=== PATIENT | female | born 1975 | race Caucasian/White ===

== ENCOUNTER 2018-07-08 17:09 | Inpatient (IN) | payer MEDICAID ==
[2018-07-08] MEDS ORDERED: BUTORPHANOL 2 MG INJ IV (17:30)
[2018-07-08] MEDS ORDERED: METHYLERGONOVINE 0.2 MG INJ IM (17:30)
[2018-07-08] MEDS ORDERED: OXYTOCIN 30 UNITS/LR 500 ML IV ×2 (17:30)
[2018-07-08] MEDS ORDERED: LIDOCAINE 1% (MPF) 30 ML INJ INJ (17:30)
[2018-07-08] MEDS ORDERED: CARBOPROST 250 MCG INJ IM (17:30)
[2018-07-08] MEDS ORDERED: MISOPROSTOL 200 MCG TAB PR (17:30)
[2018-07-08 17:49] LABS: ADD MAN DIFF? NO
[2018-07-08 17:53] LABS: WHITE BLOOD COUNT 5.7 10^3/ul (4.8-10.8)
[2018-07-08 17:53] LABS: BASOPHILS % 0.2 % (0.0-2.0); EOSINOPHILS % 0.7 % (0.0-7.0); HEMOGLOBIN 11.9 g/dl (12.0-16.0); IMMATURE GRANS #M 0.01 10^3/ul; IMMATURE GRANS % (M) 0.2 %; LYMPHOCYTES # 2.1 10^3/ul (0.8-2.9); LYMPHOCYTES % 37.3 % (15.0-51.0); MEAN CORPUSCULAR HEMOGLOBIN 34.4 pg (29.0-33.0); MEAN CORPUSCULAR VOLUME 98.3 fl (82.0-101.0); MEAN PLATELET VOLUME 11.1 fl (7.4-10.4); MONOCYTE # 0.4 10^3/ul (0.3-0.9); MONOCYTES % 7.7 % (0.0-11.0); NEUTROPHIL # 3.1 10^3/ul (1.6-7.5); NEUTROPHILS % 53.9 % (39.0-77.0); PLATELET COUNT 177 10^3/UL (140-415); RED BLOOD COUNT 3.46 10^6/ul (4.20-5.40); RED CELL DISTRIBUTION WIDTH 12.2 % (11.5-14.5)
[2018-07-08 17:57] LABS: ADD UMIC YES; UR ASCORBIC ACID NEGATIVE (NEGATIVE); UR BACTERIA MANY /HPF (NONE SEEN); UR BILIRUBIN (Dip) NEGATIVE (NEGATIVE); UR BLOOD (Dip) NEGATIVE (NEGATIVE); UR CLARITY CLOUDY (CLEAR); UR COLOR YELLOW (YELLOW); UR GLUCOSE (Dip) NEGATIVE (NEGATIVE); UR KETONES (Dip) NEGATIVE (NEGATIVE); UR LEUKOCYTE ESTERASE (Dip) TRACE Leu/ul (NEGATIVE); UR MUCUS FEW /HPF (NONE SEEN); UR NITRITE (Dip) NEGATIVE (NEGATIVE); UR RBC 7 /HPF (0-5); UR SPECIFIC GRAVITY (Dip) 1.004 (1.003-1.030); UR SQUAMOUS EPITHELIAL CELL MANY /HPF (FEW); UR TOTAL PROTEIN (Dip) NEGATIVE (NEGATIVE); UR UROBILINOGEN (Dip) NEGATIVE (NEGATIVE); UR WBC 4 /HPF (0-5)
[2018-07-08] MEDS: LACTATED RINGER'S 1,000 ML IV* ×2 (18:10→23:38)
[2018-07-08 18:13] LABS: ALANINE AMINOTRANSFERASE 31 IU/L (13-69); ALBUMIN 3.4 g/dl (3.3-4.9); ALBUMIN/GLOBULIN RATIO 1.25; ALKALINE PHOSPHATASE 96 IU/L (42-121); ANION GAP 9 (8-16); ASPARTATE AMINO TRANSFERASE 27 IU/L (15-46); BILIRUBIN,INDIRECT 0.2 mg/dl (0-1.1); BILIRUBIN,TOTAL 0.2 mg/dl (0.2-1.3); BLOOD UREA NITROGEN 7 mg/dl (7-20); CALCIUM 8.8 mg/dl (8.4-10.2); CARBON DIOXIDE 21 mmol/L (21-31); CHLORIDE 110 mmol/L (97-110); CREATININE 0.52 mg/dl (0.44-1.00); GLUCOSE 76 mg/dl (70-220); INR 0.83; PARTIAL THROMBOPLASTIN TIME 28.1 Sec (25.0-35.0); POTASSIUM 3.8 mmol/L (3.5-5.1); PROTIME 11.5 Sec (11.9-14.9); PT RATIO 0.9; SODIUM 136 mmol/L (135-144); TOTAL PROTEIN 6.1 g/dl (6.1-8.1)
[2018-07-08 18:43] LABS: HEPATITIS B SURFACE ANTIGEN NEGATIVE (NEGATIVE)
[2018-07-08] MEDS ORDERED: MISOPROSTOL 100 MCG TAB PO (20:00)
[2018-07-08] MEDS ORDERED: AMPICILLIN 2 GM/NS (PMX) 100 ML (20:21)
[2018-07-08] MEDS: MISOPROSTOL 25 MCG CAPSULE PO ×2 (20:26→22:30)
[2018-07-08] MEDS: AMPICILLIN 2 GM/NS (PMX) 100 ML IV (20:29)
[2018-07-09] MEDS: AMPICILLIN 1 GM/NS (PMX) 50 ML IV ×4 (00:17→12:30)
[2018-07-09] MEDS: MISOPROSTOL 25 MCG CAPSULE PO ×4 (02:30→14:30)
[2018-07-09] MEDS ORDERED: FENTAnyl 2MCG/ML-ROPIV 0.2% 100 ML (03:59)
[2018-07-09] MEDS ORDERED: NALOXONE (0.4 MG/ML) INJ IV ×2 (04:30→13:30)
[2018-07-09] MEDS ORDERED: FENTAnyl 2MCG/ML-ROPIV 0.2% 100 ML BAG EPI (04:30)
[2018-07-09] MEDS: DEXTROSE 5%-LR 1,000 ML IV ×2 (04:53→12:27)
[2018-07-09] MEDS: LACTATED RINGER'S 1,000 ML IV* (05:29)
[2018-07-09] MEDS ORDERED: OXYTOCIN 30 UNITS/LR 500 ML IV ×3 (07:30→12:38)
[2018-07-09] MEDS ORDERED: ONDANSETRON 4 MG INJ (09:40)
[2018-07-09] MEDS: ONDANSETRON 4 MG INJ IV ×2 (09:46→19:54)
[2018-07-09] MEDS ORDERED: TERBUTALINE 0 ML (11:34)
[2018-07-09] MEDS ORDERED: METOCLOPRAMIDE 10 MG INJ (11:46)
[2018-07-09] MEDS ORDERED: morphine SULFATE/PF (10 MG/10 ML) INJ (11:51)
[2018-07-09] MEDS ORDERED: LIDOCAINE 1.5%/EPI MPF (SDV) 30 ML VIAL (11:54)
[2018-07-09 12:24] LABS: AADO2 Cord Arterial 29.6 mmHg; Arterial Cord Blood pCO2 90.3 mmHG (25-50); CBA Base Excess -13.4 mmol/L; CBA COHb 0.3 %; MODE ROOM AIR; MetHgb Cord Arterial 1.9 %; Site CORD
[2018-07-09 12:26] LABS: CBV COHb 0.3 %; CBV Total Hemglobin 17.3 g/dl; MODE ROOM AIR; MetHgb Cord Venous 1.8 %; Site CORD
[2018-07-09] MEDS ORDERED: METHYLERGONOVINE 0.2 MG TAB PO (12:30)
[2018-07-09] MEDS: OXYCODONE/ACETAMINOPHEN (5/325) TAB PO ×2 (12:30→20:30)
[2018-07-09] MEDS ORDERED: METHYLERGONOVINE 0.2 MG INJ IM (12:30)
[2018-07-09] MEDS ORDERED: MISOPROSTOL 200 MCG TAB PR (12:30)
[2018-07-09] MEDS ORDERED: CARBOPROST 250 MCG INJ IM (12:30)
[2018-07-09] MEDS ORDERED: KETOROLAC 30 MG INJ (12:39)
[2018-07-09] MEDS ORDERED: morphine 2 MG INJ IV ×3 (13:30)
[2018-07-09] MEDS ORDERED: ONDANSETRON 4 MG INJ IV (13:30)
[2018-07-09] MEDS ORDERED: morphine (1 MG/ML) 10ML SYRINGE IV ×3 (13:30)
[2018-07-09] MEDS ORDERED: DIPHENHYDRAMINE 50 MG INJ IV ×2 (13:30)
[2018-07-09] MEDS: OXYTOCIN 30 UNITS/LR 500 ML IV (13:35)
[2018-07-09] MEDS ORDERED: IBUPROFEN 800 MG TAB PO (14:00)
[2018-07-09] MEDS: PIPER-TAZO 3.375 GM IV (PMX) 100 ML IVPB ×2 (14:09→21:43)
[2018-07-09] MEDS: LABETALOL 200 MG TAB PO (15:40)
[2018-07-09] MEDS: LACTATED RINGER'S 1,000 ML IV (18:53)
[2018-07-09] MEDS: MAGNESIUM SULFATE 4 GM/100 ML 100 ML IV (18:58)
[2018-07-09] MEDS ORDERED: CA GLUCONATE (GM) 10% 10ML INJ IV (19:00)
[2018-07-09] MEDS: MAGNESIUM SULFATE 20 GM/500 ML 500 ML IV (19:37)
[2018-07-09] MEDS: LABETALOL 100 MG TAB PO (20:31)
[2018-07-09] MEDS: SENNA/DOCUSATE NA (8.6MG/50MG) TAB PO (21:00)
[2018-07-09 21:45] LABS: RAPID PLASMA REAGIN NONREACTIVE (NR)
[2018-07-10 01:41] LABS: MAGNESIUM 4.9 mg/dl (1.7-2.5)
[2018-07-10] MEDS: OXYCODONE/ACETAMINOPHEN (5/325) TAB PO ×3 (04:30→20:30)
[2018-07-10] MEDS: MAGNESIUM SULFATE 20 GM/500 ML 500 ML IV (04:45)
[2018-07-10] MEDS: PIPER-TAZO 3.375 GM IV (PMX) 100 ML IVPB ×3 (05:32→22:35)
[2018-07-10] MEDS: KETOROLAC 30 MG INJ IV (08:22)
[2018-07-10] MEDS: SENNA/DOCUSATE NA (8.6MG/50MG) TAB PO ×2 (08:23→21:21)
[2018-07-10 09:25] LABS: ADD MAN DIFF? NO
[2018-07-10] MEDS ORDERED: GLUCAGON 1 MG INJ IM (09:30)
[2018-07-10] MEDS ORDERED: GLUCOSE GEL 15 GRAM TUBE PO ×2 (09:30)
[2018-07-10] MEDS ORDERED: DEXTROSE 50% 50 ML SYRINGE IV ×2 (09:30)
[2018-07-10] MEDS ORDERED: GLUCOSE GEL 15 GRAM TUBE BUCCAL (09:30)
[2018-07-10] MEDS: metFORMIN 500 MG TAB PO ×2 (09:40→18:13)
[2018-07-10 09:41] LABS: BASOPHILS % 0.2 % (0.0-2.0); HEMOGLOBIN 10.3 g/dl (12.0-16.0); IMMATURE GRANS #M 0.03 10^3/ul; IMMATURE GRANS % (M) 0.3 %; LYMPHOCYTES # 1.2 10^3/ul (0.8-2.9); LYMPHOCYTES % 10.3 % (15.0-51.0); MEAN CORPUSCULAR HEMOGLOBIN 34.9 pg (29.0-33.0); MEAN CORPUSCULAR HGB CONC 35.5 g/dl (32.0-37.0); MEAN CORPUSCULAR VOLUME 98.3 fl (82.0-101.0); MONOCYTE # 0.5 10^3/ul (0.3-0.9); MONOCYTES % 4.5 % (0.0-11.0); NEUTROPHIL # 10.1 10^3/ul (1.6-7.5); NEUTROPHILS % 84.7 % (39.0-77.0); PLATELET COUNT 149 10^3/UL (140-415); RED BLOOD COUNT 2.95 10^6/ul (4.20-5.40); RED CELL DISTRIBUTION WIDTH 12.2 % (11.5-14.5)
[2018-07-10 09:41] LABS: WHITE BLOOD COUNT 11.9 10^3/ul (4.8-10.8)
[2018-07-10] MEDS: LANOLIN 7 GM TUBE TOP (09:41)
[2018-07-10] MEDS: LABETALOL 100 MG TAB PO ×2 (09:41→21:21)
[2018-07-10] MEDS: LACTATED RINGER'S 1,000 ML IV (09:44)
[2018-07-10] MEDS: OXYTOCIN 30 UNITS/LR 500 ML IV (09:46)
[2018-07-10 10:02] LABS: MAGNESIUM 6.2 mg/dl (1.7-2.5)
[2018-07-10] MEDS ORDERED: MAGNESIUM SULFATE 20 GM/500 ML 500 ML IV (11:35)
[2018-07-10] MEDS ORDERED: HYDROCODONE/APAP (5/325) TAB GTB (12:00)
[2018-07-10] MEDS: HYDROCODONE/APAP (5/325) TAB PO ×3 (13:05→22:00)
[2018-07-10] MEDS: NACL 0.9% 3 ML SYG IV (14:41)
[2018-07-10 16:39] LABS: HEMOGLOBIN A1C 7.1 % (0-5.9)
[2018-07-10] MEDS: INSULIN ASPART [NOVOLOG] 3 ML PEN SC ×2 (17:59→21:00)
[2018-07-10] MEDS: IBUPROFEN 600 MG TAB PO (18:13)
[2018-07-10] MEDS: IBUPROFEN 800 MG TAB PO (21:21)
[2018-07-11] MEDS: OXYCODONE/ACETAMINOPHEN (5/325) TAB PO ×6 (04:28→20:52)
[2018-07-11] MEDS: PIPER-TAZO 3.375 GM IV (PMX) 100 ML IVPB ×3 (05:32→22:00)
[2018-07-11] MEDS: IBUPROFEN 800 MG TAB PO ×3 (05:32→22:10)
[2018-07-11] MEDS: HYDROCODONE/APAP (5/325) TAB PO ×3 (06:00→22:00)
[2018-07-11] MEDS: INSULIN ASPART [NOVOLOG] 3 ML PEN SC ×4 (08:05→21:00)
[2018-07-11] MEDS: metFORMIN 500 MG TAB PO ×2 (08:34→18:15)
[2018-07-11] MEDS: LACTATED RINGER'S 1,000 ML IV ×3 (08:37→23:59)
[2018-07-11] MEDS: LABETALOL 100 MG TAB PO ×2 (09:00→19:41)
[2018-07-11] MEDS: SENNA/DOCUSATE NA (8.6MG/50MG) TAB PO ×2 (09:21→20:51)
[2018-07-11] MEDS: LABETALOL 200 MG TAB PO (19:39)
[2018-07-12] MEDS: OXYCODONE/ACETAMINOPHEN (5/325) TAB PO ×3 (04:30→20:40)
[2018-07-12] MEDS: HYDROCODONE/APAP (5/325) TAB PO ×3 (06:00→21:56)
[2018-07-12] MEDS: IBUPROFEN 800 MG TAB PO ×3 (06:27→22:00)
[2018-07-12] MEDS: MAGNESIUM HYDROXIDE 30ML CUP PO (06:29)
[2018-07-12] MEDS: INSULIN ASPART [NOVOLOG] 3 ML PEN SC ×4 (08:05→21:00)
[2018-07-12] MEDS: metFORMIN 500 MG TAB PO ×2 (08:30→18:01)
[2018-07-12] MEDS: SENNA/DOCUSATE NA (8.6MG/50MG) TAB PO ×2 (08:39→20:40)
[2018-07-12] MEDS: LABETALOL 100 MG TAB PO ×2 (08:39→11:42)
[2018-07-12] MEDS: MEASLES,MUMPS,RUBELLA VACCINE INJ SC* (09:00)
[2018-07-12] MEDS: LACTATED RINGER'S 1,000 ML IV (13:19)
[2018-07-12] MEDS: LABETALOL 200 MG TAB PO (20:41)
[2018-07-13] MEDS: LACTATED RINGER'S 1,000 ML IV (02:39)
[2018-07-13] MEDS: OXYCODONE/ACETAMINOPHEN (5/325) TAB PO ×3 (04:25→20:41)
[2018-07-13] MEDS: HYDROCODONE/APAP (5/325) TAB PO ×3 (05:56→22:00)
[2018-07-13] MEDS: IBUPROFEN 800 MG TAB PO ×3 (05:56→22:00)
[2018-07-13] MEDS: INSULIN ASPART [NOVOLOG] 3 ML PEN SC ×4 (08:05→20:49)
[2018-07-13] MEDS: LABETALOL 200 MG TAB PO (08:14)
[2018-07-13] MEDS: metFORMIN 500 MG TAB PO ×2 (08:14→18:04)
[2018-07-13] MEDS: SENNA/DOCUSATE NA (8.6MG/50MG) TAB PO ×2 (08:15→20:41)
[2018-07-13] MEDS: DIPHTH/TET/ACEL PERTUSS (ADULT) 0.5 ML VIAL IM* (11:13)
[2018-07-13] MEDS ORDERED: hydrALAzine 20 MG INJ IV (16:30)
[2018-07-13 16:39] LABS: ADD MAN DIFF? NO
[2018-07-13 16:40] LABS: WHITE BLOOD COUNT 7.1 10^3/ul (4.8-10.8)
[2018-07-13 16:40] LABS: BASOPHILS % 0.3 % (0.0-2.0); EOSINOPHILS # 0.1 10^3/ul (0.0-0.5); EOSINOPHILS % 1.7 % (0.0-7.0); HEMATOCRIT 29.7 % (37.0-47.0); LYMPHOCYTES # 1.6 10^3/ul (0.8-2.9); LYMPHOCYTES % 21.7 % (15.0-51.0); MEAN CORPUSCULAR HEMOGLOBIN 34.4 pg (29.0-33.0); MEAN CORPUSCULAR HGB CONC 33.7 g/dl (32.0-37.0); MEAN CORPUSCULAR VOLUME 102.1 fl (82.0-101.0); MEAN PLATELET VOLUME 9.5 fl (7.4-10.4); MONOCYTE # 0.5 10^3/ul (0.3-0.9); MONOCYTES % 6.9 % (0.0-11.0); NEUTROPHIL # 4.9 10^3/ul (1.6-7.5); NEUTROPHILS % 68.8 % (39.0-77.0); PLATELET COUNT 228 10^3/UL (140-415); RED BLOOD COUNT 2.91 10^6/ul (4.20-5.40); RED CELL DISTRIBUTION WIDTH 12.9 % (11.5-14.5)
[2018-07-13 16:49] LABS: HEMOGLOBIN A1C 7.1 % (0-5.9)
[2018-07-13 16:58] LABS: ALANINE AMINOTRANSFERASE 43 IU/L (13-69); ALBUMIN 3.1 g/dl (3.3-4.9); ALBUMIN/GLOBULIN RATIO 1.14; ALKALINE PHOSPHATASE 74 IU/L (42-121); ANION GAP 12 (8-16); ASPARTATE AMINO TRANSFERASE 39 IU/L (15-46); BILIRUBIN,INDIRECT 0.2 mg/dl (0-1.1); BILIRUBIN,TOTAL 0.2 mg/dl (0.2-1.3); BLOOD UREA NITROGEN 10 mg/dl (7-20); CALCIUM 8.9 mg/dl (8.4-10.2); CARBON DIOXIDE 25 mmol/L (21-31); CHLORIDE 106 mmol/L (97-110); CREATININE 0.67 mg/dl (0.44-1.00); GLUCOSE 117 mg/dl (70-220); POTASSIUM 4.6 mmol/L (3.5-5.1); SODIUM 138 mmol/L (135-144); TOTAL PROTEIN 5.8 g/dl (6.1-8.1)
[2018-07-13] MEDS: NIFEdipine (XL) 60 MG TAB PO (19:23)
[2018-07-13] MEDS: hydrALAzine 20 MG INJ IV (23:20)
[2018-07-13] MEDS: MAGNESIUM SULFATE 4 GM/100 ML 100 ML IVPB (23:26)
[2018-07-14] MEDS: MAGNESIUM SULFATE 20 GM/500 ML 500 ML IV ×2 (00:06→10:51)
[2018-07-14] MEDS: LACTATED RINGER'S 1,000 ML IV ×2 (00:34→11:42)
[2018-07-14] MEDS: OXYCODONE/ACETAMINOPHEN (5/325) TAB PO ×3 (04:30→11:35)
[2018-07-14 05:46] LABS: ADD MAN DIFF? NO
[2018-07-14 05:48] LABS: BASOPHILS % 0.2 % (0.0-2.0); EOSINOPHILS # 0.2 10^3/ul (0.0-0.5); EOSINOPHILS % 2.3 % (0.0-7.0); HEMATOCRIT 29.7 % (37.0-47.0); LYMPHOCYTES # 1.4 10^3/ul (0.8-2.9); LYMPHOCYTES % 21.7 % (15.0-51.0); MEAN CORPUSCULAR HEMOGLOBIN 33.7 pg (29.0-33.0); MEAN CORPUSCULAR HGB CONC 33.7 g/dl (32.0-37.0); MEAN PLATELET VOLUME 9.5 fl (7.4-10.4); MONOCYTE # 0.6 10^3/ul (0.3-0.9); MONOCYTES % 9.8 % (0.0-11.0); NEUTROPHIL # 4.2 10^3/ul (1.6-7.5); NEUTROPHILS % 64.9 % (39.0-77.0); NUCLEATED RED BLOOD CELLS% 0.3 /100WBC (0.0-0.0); PLATELET COUNT 251 10^3/UL (140-415); RED BLOOD COUNT 2.97 10^6/ul (4.20-5.40); RED CELL DISTRIBUTION WIDTH 12.9 % (11.5-14.5)
[2018-07-14 05:48] LABS: WHITE BLOOD COUNT 6.4 10^3/ul (4.8-10.8)
[2018-07-14] MEDS: HYDROCODONE/APAP (5/325) TAB PO ×4 (06:00→22:15)
[2018-07-14] MEDS: IBUPROFEN 800 MG TAB PO ×3 (06:00→22:00)
[2018-07-14 06:25] LABS: ANION GAP 10 (8-16); BLOOD UREA NITROGEN 8 mg/dl (7-20); CALCIUM 7.7 mg/dl (8.4-10.2); CARBON DIOXIDE 26 mmol/L (21-31); CHLORIDE 105 mmol/L (97-110); CREATININE 0.51 mg/dl (0.44-1.00); GLUCOSE 131 mg/dl (70-220); MAGNESIUM 4.6 mg/dl (1.7-2.5); PHOSPHORUS 4.5 mg/dl (2.5-4.9); POTASSIUM 3.8 mmol/L (3.5-5.1); SODIUM 137 mmol/L (135-144)
[2018-07-14] MEDS: IBUPROFEN 600 MG TAB PO ×5 (07:02→21:35)
[2018-07-14] MEDS: metFORMIN 500 MG TAB PO ×2 (07:51→17:06)
[2018-07-14] MEDS: SENNA/DOCUSATE NA (8.6MG/50MG) TAB PO ×2 (07:51→22:14)
[2018-07-14] MEDS: NIFEdipine (XL) 60 MG TAB PO (07:51)
[2018-07-14] MEDS: INSULIN ASPART [NOVOLOG] 3 ML PEN SC ×4 (07:56→21:00)
[2018-07-14] MEDS: NIFEdipine (XL) 30 MG TAB PO (10:38)
[2018-07-14 12:25] LABS: MAGNESIUM 4.5 mg/dl (1.7-2.5)
[2018-07-15] MEDS: LACTATED RINGER'S 1,000 ML IV ×2 (01:22→17:01)
[2018-07-15 05:54] LABS: ADD MAN DIFF? NO
[2018-07-15 05:57] LABS: WHITE BLOOD COUNT 7.6 10^3/ul (4.8-10.8)
[2018-07-15 05:57] LABS: BASOPHILS % 0.4 % (0.0-2.0); EOSINOPHILS # 0.2 10^3/ul (0.0-0.5); HEMATOCRIT 35.2 % (37.0-47.0); HEMOGLOBIN 11.6 g/dl (12.0-16.0); LYMPHOCYTES # 1.9 10^3/ul (0.8-2.9); LYMPHOCYTES % 24.6 % (15.0-51.0); MEAN CORPUSCULAR HEMOGLOBIN 33.1 pg (29.0-33.0); MEAN CORPUSCULAR VOLUME 100.6 fl (82.0-101.0); MEAN PLATELET VOLUME 9.5 fl (7.4-10.4); MONOCYTE # 0.6 10^3/ul (0.3-0.9); MONOCYTES % 7.6 % (0.0-11.0); NEUTROPHIL # 4.9 10^3/ul (1.6-7.5); NEUTROPHILS % 64.5 % (39.0-77.0); PLATELET COUNT 319 10^3/UL (140-415)
[2018-07-15] MEDS: HYDROCODONE/APAP (5/325) TAB PO ×3 (06:18→21:19)
[2018-07-15] MEDS: IBUPROFEN 800 MG TAB PO ×3 (06:18→21:19)
[2018-07-15 06:36] LABS: ANION GAP 10 (8-16); BLOOD UREA NITROGEN 9 mg/dl (7-20); CALCIUM 7.7 mg/dl (8.4-10.2); CARBON DIOXIDE 28 mmol/L (21-31); CHLORIDE 106 mmol/L (97-110); CREATININE 0.56 mg/dl (0.44-1.00); GLUCOSE 101 mg/dl (70-220); MAGNESIUM 2.8 mg/dl (1.7-2.5); PHOSPHORUS 3.7 mg/dl (2.5-4.9); POTASSIUM 3.9 mmol/L (3.5-5.1); SODIUM 140 mmol/L (135-144)
[2018-07-15 07:16] LABS: ADD UMIC YES; UR ASCORBIC ACID NEGATIVE (NEGATIVE); UR BACTERIA FEW /HPF (NONE SEEN); UR BILIRUBIN (Dip) NEGATIVE (NEGATIVE); UR BLOOD (Dip) 2+ mg/dL (NEGATIVE); UR CLARITY SLIGHTLY CLOUDY (CLEAR); UR COLOR YELLOW (YELLOW); UR GLUCOSE (Dip) NEGATIVE (NEGATIVE); UR KETONES (Dip) NEGATIVE (NEGATIVE); UR LEUKOCYTE ESTERASE (Dip) TRACE Leu/ul (NEGATIVE); UR MUCUS FEW /HPF (NONE SEEN); UR NITRITE (Dip) NEGATIVE (NEGATIVE); UR RBC 8 /HPF (0-5); UR SPECIFIC GRAVITY (Dip) 1.014 (1.003-1.030); UR TOTAL PROTEIN (Dip) NEGATIVE (NEGATIVE); UR UROBILINOGEN (Dip) NEGATIVE (NEGATIVE); UR WBC 25 /HPF (0-5)
[2018-07-15] MEDS: INSULIN ASPART [NOVOLOG] 3 ML PEN SC ×4 (08:00→20:06)
[2018-07-15] MEDS: SENNA/DOCUSATE NA (8.6MG/50MG) TAB PO ×2 (08:06→20:06)
[2018-07-15] MEDS: NIFEdipine (XL) 90 MG TAB PO (08:06)
[2018-07-15] MEDS: metFORMIN 500 MG TAB PO ×2 (08:07→17:01)
== END 2018-07-15 22:30 | disposition home or self-care (01) | DRG 766 ==
LOC: L-D 07-09 07:37 → PP1 07-10 04:43 → L-D 17:09 → 6WM 07-14 00:41 → L-D 07-09 12:45 → PP1 07-09 15:11 → L-D 07-09 22:30
PROC: 10D00Z1 Extraction of Products of Conception, Low, Open Approach (ICD-10-PCS; principal; 2018-07-09 11:45)
PROC: 10907ZC Drainage of Amniotic Fluid, Therapeutic from Products of Conception, Via Natural or Artificial Opening (ICD-10-PCS; 2018-07-09 11:45)
DX: O14.94 Unspecified pre-eclampsia, complicating childbirth (principal); O24.424 Gestational diabetes mellitus in childbirth, insulin controlled; O76 Abnormality in fetal heart rate and rhythm complicating labor and delivery; Z3A.38 38 weeks gestation of pregnancy; Z37.0 Single live birth
CPT/HCPCS: 36415; 36600; 59025; 62319; 74018; 76816; 80048; 80053; 81001; 82803; 82962; 83036; 83735; 84100; 84560; 85025; 85384; 85610; 85730; 86592; 86850; 86900; 86901; 87086; 87340; 88307; 90715